=== PATIENT | female | born 1975 | race African-American/Black ===

== ENCOUNTER 2017-12-09 14:54 | Emergency (ER) | payer OTHER ==
[2017-12-09 14:57] VITALS: TEMP 98.4; BMI 65.9
--- NOTE | 2017-12-09 15:14 | PDOC ---
History of Present Illness - General Chief Complaint: Pain Stated Complaint: FACIAL PAIN Time Seen by Provider: 12/09/17 15:04 History Source: Patient Exam Limitations: No Limitations - History of Present Illness Initial Comments: CHIEF COMPLAINT: 42 y/o afebrile female c/o right sided jaw pain x 4 days. HISTORY OF PRESENT ILLNESS: The patient had a tooth pulling in the back of her mouth on the right side 4 days ago. She states since then the right side of her face and jaw have gotten progressively more painful and swollen. She went back to the dentist twice who feels her jaw bone may have accidentally been broken during the process of the tooth extraction. The patient is taking tylenol with codeine and clindamycin. She denies fevers. Vital signs on arrival are notable for BP of 139/100. REVIEW OF SYSTEMS: GENERAL/CONSTITUTIONAL: No fever/chills. No weakness. No weight change. HEAD, EYES, EARS, NOSE AND THROAT: +right sided jaw pain and swelling. + difficulty opening mouth. No change in vision. No ear pain or discharge. No sore throat. MUSCULOSKELETAL: No joint or muscle swelling or pain. No neck or back pain. SKIN: No rash or easy bruising. NEUROLOGIC: No headache, vertigo, loss of consciousness, or loss of sensation. PHYSICAL EXAM: GENERAL: The patient is awake, alert, and fully oriented, in no acute distress. HEAD: Normal with no signs of trauma. Obvious swelling to right side of face over right mandible and maxilla. No warmth or streaking. No mastoid TTP b/l. ENT: 2 finger trismus. TTP of right side of face over maxilla and mandible without crepitus or obvious deformities. TTP of right TMJ. Pupils equal, round and reactive to light, extraocular movements intact, sclera anicteric, conjunctiva clear. No pre or post auricular lymphadenopathy. No cervical lymphadenopathy. No obvious gingivitis or signs of infection inside of the mouth. EXTREMITIES: Normal range of motion, no edema. NEUROLOGICAL: Normal speech, normal gait. CN II-XII grossly intact. SKIN: Warm, dry, normal turgor, no rashes or lesions noted. Past History - Past Medical History Allergies/Adverse Reactions: Allergies Allergy/AdvReac Type Severity Reaction Status Date / Time acetaminophen Allergy Severe Nausea Verified 12/09/17 16:29 codeine Allergy Severe Vomiting Verified 12/09/17 16:29 codeine phosphate Allergy Severe Verified 12/09/17 16:29 [From Tylenol-Codeine #3] Home Medications: Ambulatory Orders Amlodipine Besylate 10 mg PO DAILY 02/24/15 Lisinopril [Prinivil -] 10 mg PO DAILY 02/24/15 HTN: Yes - Surgical History Abdominal Surgery: Yes (OVARIAN CYST REMOVED) - Immunization History Immunization Up to Date: Yes - Suicide/Smoking/Psychosocial Hx Smoking Status: No Smoking History: Never smoked Number of Cigarettes Smoked Daily: 0 Hx Alcohol Use: Yes (occasion) Drug/Substance Use Hx: No *Physical Exam - Vital Signs Last Vital Signs Temp Pulse Resp BP Pulse Ox 98.4 F 86 16 139/100 100 12/09/17 14:55 12/09/17 14:55 12/09/17 14:55 12/09/17 14:55 12/09/17 14:55 Medical Decision Making - Medical Decision Making A/P: 42 y/o female with right sided jaw pain and swelling since having molar extracted 4 days ago. TMJ vs jaw bone fracture. Plan is as follows: 1. hcg 2. xray facial bones hcg - negative IM toradol ordered Facial bones xray IMPRESSION: Subtle hazy increased opacity within the right maxillary sinus with some subtle irregularity involving the right maxillary sinus medial wall, which could be projectional, but a subtle fracture cannot be excluded. CT scan is recommended. Will send patient for CT scan of facial bones. CT scan facial bones IMPRESSION: No acute facial bone fracture. Findings consistent with chronic right maxillary sinusitis. Patient given all results. Her trismus and ability to speak have improved since having toradol. Suggested she take ibuprofen along with her other medications and ice her face. Provided her with a referral to oral max/face and a copy of her CT scan results. Instructed her to return to the ER with any worsening or concerning symptoms. The patient verbalizes understanding of all instructions, has no further questions and is awaiting discharge. *DC/Admit/Observation/Transfer Diagnosis at time of Disposition: Facial swelling, TMJ (temporomandibular joint syndrome) - Discharge Dispostion Disposition: HOME Condition at time of disposition: Improved - Referrals Referrals: Ac Navarro [Primary Care Provider] - Rich Lerner [Non Staff, Medical] - Call tomorrow (Call Monday) - Patient Instructions Printed Discharge Instructions: DI for Temporomandibular Disorder Additional Instructions: Discharge Instructions: -The Cat Scan of your facial bones was negative for broken bones. -Please continue taking antibiotics and pain medication your dentist prescribed for you -Take 600mg of over the counter Ibuprofen every 6 hours with food to help with swelling -Apply ice to the affected area of your face -Call the referred specialist on Monday to make a follow up appointment -Return to the ER with any worsening or concerning symptoms - Post Discharge Activity
[2017-12-09] MEDS ORDERED: KETOROLAC TROMETHAMINE 60 MG/2 ML VIAL ONE (16:59)
[2017-12-09] MEDS ORDERED: KETOROLAC TROMETHAMINE 60 MG/2 ML VIAL IM ONE (16:59)
[2017-12-09 17:35] VITALS: BP 148/93; PULSE 77
== END 2017-12-09 19:14 | disposition home or self-care (01) ==
LOC: JERFT 14:54
PROC: 3E0233Z Introduction of Anti-inflammatory into Muscle, Percutaneous Approach (ICD-10-PCS; principal; 2017-12-09)
DX: M26.69 Other specified disorders of temporomandibular joint (principal)
CPT/HCPCS: 70150-TC-FY; 70486-TC; 84703; 96372; 99281-25

== ENCOUNTER 2019-02-05 17:09 | Emergency (ER) | payer OTHER ==
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
[2019-02-05 17:17] VITALS: TEMP 98.2; BMI 25.7
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
[2019-02-05 18:32] LABS: BASO % 0.5 % (0-2.0); EOS % 1.7 % (0-4.5); HEMATOCRIT 37.1 % (32.4-45.2); LYMPH % 44.7 % (8-40); MCH 26.9 pg (25.7-33.7); MCHC 32.4 g/dl (32.0-36.0); MEAN PLT VOLUME 7.4 fl (7.5-11.1); MONO % 7.2 % (3.8-10.2); NEUT % 45.9 % (42.8-82.8); PLATELET COUNT 363 K/MM3 (134-434); RBC 4.47 M/mm3 (3.60-5.2); RDW 14.1 % (11.6-15.6); WHITE BLOOD COUNT 5.5 K/mm3 (4.0-10.0)
[2019-02-05 18:40] LABS: INR 0.99 (0.83-1.09); PROTHROMBIN TIME (PATIENT) 11.7 SEC (9.7-13.0)
[2019-02-05 19:10] LABS: ALBUMIN 4.2 g/dl (3.4-5.0); ALK PHOS 68 U/L (45-117); ANION GAP 5 MMOL/L (8-16); BILIRUBIN,TOTAL 0.2 mg/dL (0.2-1); BLOOD UREA NITROGEN 9.4 mg/dL (7-18); CALCIUM 8.8 mg/dL (8.5-10.1); CHLORIDE 104 mmol/L (98-107); CO2 30 mmol/L (21-32); CREATININE 0.7 mg/dL (0.55-1.3); GLUCOSE,RANDOM 89 mg/dL (74-106); POTASSIUM 3.1 mmol/L (3.5-5.1); SGOT/AST 9 U/L (15-37); SGPT/ALT 13 U/L (13-61); SODIUM 139 mmol/L (136-145); TOT PROT 7.9 g/dl (6.4-8.2)
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
[2019-02-05] MEDS ORDERED: KETOROLAC TROMETHAMINE 30 MG/1 ML VIAL IM ONE (20:00)
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
[2019-02-05] MEDS ORDERED: KETOROLAC TROMETHAMINE 30 MG/1 ML VIAL ONE (20:12)
[2019-02-05 20:35] VITALS: BP 135/91; PULSE 72
--- NOTE | 2019-02-06 09:54 | EKG ---
Test Reason : Blood Pressure : / mmHG Vent. Rate : 073 BPM Atrial Rate : 073 BPM P-R Int : 270 ms QRS Dur : 086 ms QT Int : 392 ms P-R-T Axes : 071 063 064 degrees QTc Int : 431 ms SINUS RHYTHM WITH 1ST DEGREE A-V BLOCK OTHERWISE NORMAL ECG WHEN COMPARED WITH ECG OF 21-JAN-2008 01:50, [place] INTERVAL HAS INCREASED Confirmed by YAO PERALES, BLAISE ([id number]) on 02/06/2019 9:53:40 AM Referred By: Confirmed By:BLAISE SAMAYOA MD
== END 2019-02-05 21:31 | disposition home or self-care (01) ==
LOC: JERFT 17:09 → JER 17:09
PROC: 3E0233Z Introduction of Anti-inflammatory into Muscle, Percutaneous Approach (ICD-10-PCS; principal; 2019-02-05)
DX: S29.8XXA Other specified injuries of thorax, initial encounter (principal); V78.6XXA Passenger on bus injured in noncollision transport accident in traffic accident, initial encounter; Y92.414 Local residential or business street as the place of occurrence of the external cause; Y93.89 Activity, other specified; Y99.8 Other external cause status; I10 Essential (primary) hypertension
CPT/HCPCS: 36415; 71046-TC-FY; 80053; 82550; 84484; 84703; 85025; 85610; 93005; 93010; 99283-25

== ENCOUNTER 2019-02-11 17:32 | Emergency (ER) | payer OTHER ==
[2019-02-11] MEDS ORDERED: KETOROLAC TROMETHAMINE 30 MG/1 ML VIAL IM ONE (18:02)
[2019-02-11] MEDS ORDERED: KETOROLAC TROMETHAMINE 30 MG/1 ML VIAL ONE (18:15)
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
[2019-02-11 18:29] VITALS: PULSE 78; TEMP 98.2; BMI 25.7
[2019-02-11 18:35] VITALS: BP 139/97
== END 2019-02-11 18:38 | disposition home or self-care (01) ==
LOC: FER 17:32
PROC: 3E0233Z Introduction of Anti-inflammatory into Muscle, Percutaneous Approach (ICD-10-PCS; principal; 2019-02-11)
DX: R25.2 Cramp and spasm (principal); S29.8XXA Other specified injuries of thorax, initial encounter; V43.62XA Car passenger injured in collision with other type car in traffic accident, initial encounter; Y93.89 Activity, other specified; Y92.410 Unspecified street and highway as the place of occurrence of the external cause; Z88.6 Allergy status to analgesic agent; Z88.8 Allergy status to other drugs, medicaments and biological substances; I10 Essential (primary) hypertension
CPT/HCPCS: 99282-25

== ENCOUNTER 2019-02-25 10:53 | Inpatient (IN) | payer OTHER ==
[2019-02-25 08:51] VITALS: BMI 25.7
[2019-02-25] MEDS ORDERED: PROPOFOL 20 ML ONE ×2 (11:15→16:10)
[2019-02-25] MEDS ORDERED: MIDAZOLAM HCL 2 MG/2 ML SINGLE DOSE VIAL ONE ×2 (11:15→14:59)
[2019-02-25] MEDS ORDERED: fentaNYL CITRATE 250 MCG/5 ML VIAL ONE (11:15)
[2019-02-25] MEDS ORDERED: ROCURONIUM BROMIDE 50 MG/5 ML SYRINGE ONE ×2 (11:16→13:33)
[2019-02-25] MEDS ORDERED: BUPIVACAINE HCL/PF 0.5% (5 MG/ML) 30 ML VIAL IJ ONE (11:45)
[2019-02-25] MEDS ORDERED: LIDOCAINE 1%-EPI 1:100,000 30 ML MDV IJ ONE (11:45)
[2019-02-25] MEDS ORDERED: THROMBIN (BOVINE) 20,000 UNIT VIAL TP ONE (11:45)
[2019-02-25] MEDS ORDERED: GENTAMICIN SO4 80 MG/2 ML VIAL ONE (12:19)
--- NOTE | 2019-02-25 12:22 | HP ---
History & Physical Update - History History: No Change - Physical Physical: No Change - Assessment Assessment: No Change - Plan Plan: No Change (Full H&P in the chart from 02/05/19)
[2019-02-25] MEDS ORDERED: ceFAZolin SODIUM 1 GM VIAL IVPB ONE (12:57)
[2019-02-25] MEDS ORDERED: VANCOMYCIN 1,000 MG VIAL (RESTRICTED TO ID ONLY) IVPB ONE (12:59)
[2019-02-25] MEDS ORDERED: hydrALAZINE HCL 20 MG/ML VIAL ONE (13:12)
[2019-02-25] MEDS ORDERED: LIDOCAINE HCL 1%, 10 MG/ML (20ML VIAL) INF ONE (13:30)
[2019-02-25] MEDS ORDERED: NEOSTIGMINE METHYLSULFATE 0.5 MG/ML - 10 ML MDV ONE ×2 (14:38→14:47)
[2019-02-25] MEDS ORDERED: THROMBIN (BOVINE) 5,000 UNIT VIAL TP ONE (14:43)
[2019-02-25] MEDS ORDERED: oxyCODONE HCL 5 MG TABLET PO PRN ×2 (14:53)
[2019-02-25] MEDS ORDERED: ONDANSETRON 4 MG/2 ML VIAL IVPUSH PRN (14:53)
[2019-02-25] MEDS ORDERED: diphenhydrAMINE HCL 25 MG CAPSULE (FP) PO PRN (14:53)
--- NOTE | 2019-02-25 15:05 | OP ---
Operative Note - Note: Operative Date: 02/25/19 Pre-Operative Diagnosis: Cervical spondylosis and lordosis Operation: C5 corpectomy with decompression of spondylosis and reconstruction with PEEK cage and anterior plate Post-Operative Diagnosis: Same as Pre-op Surgeon: Hadley Ashford Stock Feeder: Dominguez Barber Anesthesiologist/TICKET PULLER: George Gallagher Anesthesia: General Estimated Blood Loss (mls): 20 Operative Report Dictated: Yes
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
[2019-02-25] MEDS ORDERED: HYDROmorphone *PCA* 10MG/50ML DISP.SYRIN ONE (17:37)
[2019-02-25] MEDS ORDERED: HYDROmorphone *PCA* 10MG/50ML DISP.SYRIN PCA SCH (17:45)
[2019-02-25] MEDS ORDERED: HYDROmorphone *PCA* 10MG/50ML DISP.SYRIN PCA ONE (17:50)
[2019-02-25] MEDS ORDERED: ceFAZolin SODIUM 1 GM VIAL ONE (18:28)
[2019-02-25] MEDS ORDERED: DEXTROSE 5%-WATER - 50 ML IVPB ONE (18:28)
[2019-02-25] MEDS: CEFAZOLIN 1 GM in DEXTROSE 5%-WATER - 50 ML IVPB SCH (18:35)
[2019-02-25] MEDS: LACTATED RINGERS SOLUTION 1,000 ML/1,000 ML INFUS.BAG IV SCH (18:36)
[2019-02-25] MEDS: HEPARIN NA (PORCINE) 5,000 UNITS/ML 1ML VIAL SQ SCH (21:48)
[2019-02-25] MEDS: DOCUSATE SODIUM 100 MG CAPSULE (FP) PO SCH (21:49)
[2019-02-26] MEDS ORDERED: ceFAZolin SODIUM 1 GM VIAL ONE ×2 (01:07→08:48)
[2019-02-26] MEDS ORDERED: DEXTROSE 5%-WATER - 50 ML IVPB ONE ×2 (01:07→08:48)
[2019-02-26] MEDS: CEFAZOLIN 1 GM in DEXTROSE 5%-WATER - 50 ML IVPB SCH ×2 (01:25→09:24)
[2019-02-26] MEDS: HEPARIN NA (PORCINE) 5,000 UNITS/ML 1ML VIAL SQ SCH ×3 (05:45→22:06)
[2019-02-26] MEDS: DOCUSATE SODIUM 100 MG CAPSULE (FP) PO SCH ×3 (05:45→22:06)
[2019-02-26 08:12] LABS: HEMATOCRIT 36.2 % (32.4-45.2); HEMOGLOBIN 11.9 GM/dL (10.7-15.3); MCH 27.7 pg (25.7-33.7); MCHC 32.9 g/dl (32.0-36.0); MEAN CELL VOLUME 84.1 fl (80-96); MEAN PLT VOLUME 7.2 fl (7.5-11.1); PLATELET COUNT 297 K/MM3 (134-434); RBC 4.31 M/mm3 (3.60-5.2); WHITE BLOOD COUNT 7.3 K/mm3 (4.0-10.0)
--- NOTE | 2019-02-26 08:20 | PN ---
Progress Note (short form) - Note Progress Note: NEUROSURGERY POD #1 s/p C5 corpectomy with decompression of spondylosis and reconstruction with PEEK cage and anterior plate Alert. C/o a lot of posterior neck pain (muscular in nature). Has incisional tenderness. Difficulty sleeping last night due to headache. On DECK MOLDER for pain management but states it's not working. Per RN, patient removed her c-collar multiple times. Hasn't been oob yet. A few episodes of n/v (2/2 general anasthesia) which has resolved. Denies fever , chills, cp, palpiations, sob, handley or UE numbness/tingling. Last Vital Signs Temp Pulse Resp BP Pulse Ox 98.0 F 95 H 20 140/86 100 02/25/19 18:00 02/26/19 07:00 02/26/19 07:00 02/26/19 07:00 02/26/19 07:00 Gen: alert. mild-moderate discomfort Neck; c-collar in place. MAGALY 30mL (serosang). dressing c/d/i. No palpable hematoma. Trach midline. Neuro: GMNVI all extremities. Problem List - Problems (1) Cervical spondylosis Assessment/Plan: Incentive spirometer Wear your c-collar 23/24 hrs/day (may remove while eating) OOB and ambulate Patient states she's still having pain and wishes to stay another day/night for pain management Ofirmev 1gm DECK MOLDER as per Anasthesi Diet as tolerated Cont medical management Will dc her MAGALY later today. dc planning 02/27/19 Neurosurgery to cont following Code(s): M47.812 - SPONDYLOSIS W/O MYELOPATHY OR RADICULOPATHY, CERVICAL REGION (2) Muscle spasms of neck Code(s): M62.838 - OTHER MUSCLE SPASM (3) HTN (hypertension) Code(s): I10 - ESSENTIAL (PRIMARY) HYPERTENSION
[2019-02-26 08:43] LABS: BLOOD UREA NITROGEN 7.1 mg/dL (7-18); CALCIUM 9.6 mg/dL (8.5-10.1); CREATININE 0.7 mg/dL (0.55-1.3); POTASSIUM 3.8 mmol/L (3.5-5.1)
[2019-02-26] MEDS ORDERED: ACETAMINOPHEN 1000 MG/100 ML VIAL (NON FORMULARY) IVPB ONE ×2 (08:45→23:04)
[2019-02-26] MEDS: LISINOPRIL 10 MG TABLET (FP) PO SCH (09:11)
[2019-02-26] MEDS: FOLIC ACID 1 MG TABLET (FP) PO SCH (09:11)
[2019-02-26] MEDS: amLODIPine BESYLATE 5 MG TABLET (FP) PO SCH (09:11)
[2019-02-26] MEDS: FERROUS SO4 325 MG TABLET (FP) PO SCH (09:11)
[2019-02-26] MEDS: ASCORBIC ACID 500 MG TABLET (FP) PO SCH ×2 (09:11→22:06)
--- NOTE | 2019-02-26 10:49 | PROC ---
Procedure Note Procedure: POD#1 ACDF doing well MAGALY drain removed with tip fully intact. drain ostomy clean and dry with no active d/c. Incision c/d/i with surrounding tissue intact with no tracking erythema, edema or evidence of collection or d/c. trachea midline. The patient tolerated the procedure well.
[2019-02-26] MEDS ORDERED: BENZOCAINE/MENTH/CETYLPYRD CL 1 EACH LOZENGE MM PRN (10:50)
--- NOTE | 2019-02-26 11:41 | PN ---
Physical Exam: SUBJECTIVE: Patient seen and examined at the bedside. still with headaches for a few days she states. denies any allergies to acetaminophen. received one dose of ofirmev today w/o issue. states acetaminophen allergy is an error and she has had no adverse affects or allergies from tylenol or acetaminophen. OBJECTIVE: will give fiorecet x 1 dose will remove acetaminophen allergy from [employer] Vital Signs Period Temp Pulse Resp BP Sys/Astudillo Pulse Ox Last 24 Hr 97.6 F-98.0 F 70-99 11-20 112-148/74-99 98-100 GENERAL: The patient is awake, alert, and fully oriented, in no acute distress. HEAD: Normal with no signs of trauma. EYES: PERRL, extraocular movements intact, sclera anicteric, conjunctiva clear. No ptosis. ENT: Ears normal, nares patent, oropharynx clear without exudates, moist mucous membranes. NECK: Trachea midline, full range of motion, supple. ABDOMEN: Soft, nontender, nondistended, normoactive bowel sounds, no guarding, no rebound, no hepatosplenomegaly, no masses. EXTREMITIES: 2+ pulses, warm, well-perfused, no edema. NEUROLOGICAL: Cranial nerves II through XII grossly intact. Normal speech, gait not observed. PSYCH: Normal mood, normal affect. SKIN: Warm, dry, normal turgor, no rashes or lesions noted Laboratory Results - last 24 hr 02/25/19 02/25/19 02/26/19 11:14 11:50 07:45 WBC 7.3 RBC 4.31 Hgb 11.9 Hct 36.2 MCV 84.1 MCH 27.7 MCHC 32.9 RDW 15.0 Plt Count 297 MPV 7.2 L Sodium Potassium Chloride Carbon Dioxide Anion Gap BUN Creatinine Est GFR (CKD-EPI)AfAm Est GFR (CKD-EPI)NonAf Random Glucose Calcium Serum , Qual Negative Blood Type O POSITIVE Antibody Screen Negative 02/26/19 07:45 WBC RBC Hgb Hct MCV MCH MCHC RDW Plt Count MPV Sodium 135 L Potassium 3.8 Chloride 101 Carbon Dioxide 29 Anion Gap 6 L BUN 7.1 Creatinine 0.7 Est GFR (CKD-EPI)AfAm 122.13 Est GFR (CKD-EPI)NonAf 105.37 Random Glucose 97 Calcium 9.6 Serum , Qual Blood Type Antibody Screen Active Medications Generic Name Dose Route Start Last Admin Trade Name Freq PRN Reason Stop Dose Admin Amlodipine Besylate 5 mg 02/26/19 10:00 02/26/19 09:11 Norvasc - PO 5 mg DAILY ERMELINDA Administration Ascorbic Acid 500 mg 02/26/19 10:00 02/26/19 09:11 Vitamin C - PO 500 mg BID ERMELINDA Administration Benzocaine/Menthol 1 each 02/26/19 10:50 Cepacol Lozenge - MM PRN PRN SORE THROAT Diazepam 5 mg 02/26/19 22:00 Valium - PO DAILY [facility] Diphenhydramine HCl 25 mg 02/25/19 14:53 Benadryl - PO Q6H PRN FOR ITCHING Docusate Sodium 100 mg 02/25/19 22:00 02/26/19 05:45 Colace - PO Not Given TID [facility] Fentanyl 50 mcg 02/25/19 16:02 Sublimaze Injection - IVPUSH [id number] PRN PAIN-PACU ORDER X 4 DOSES ONLY Ferrous Sulfate 325 mg 02/26/19 10:00 02/26/19 09:11 Feosol - PO 325 mg DAILY [facility] Administration Folic Acid 1 mg 02/26/19 10:00 02/26/19 09:11 Folic Acid - PO 1 mg DAILY [facility] Administration Heparin Sodium (Porcine) 5,000 unit 02/25/19 22:00 02/26/19 05:45 Heparin - SQ 5,000 unit TID [facility] Administration Hydromorphone HCl 10 mg 02/25/19 17:45 02/25/19 18:35 Hydromorphone 10 Mg/50 Ml-Ns [employer] 03/04/19 17:43 10 mg [employer] ERMELINDA Administration Protocol Lactated Ringer's 1,000 ml in 1,000 mls @ 125 mls/hr 02/25/19 15:00 02/25/19 18:36 Lactated Ringers Solution IV 125 mls/hr ASDIR ERMELINDA Administration Lisinopril 10 mg 02/26/19 10:00 02/26/19 09:11 Prinivil PO 10 mg DAILY ERMELINDA Administration Ondansetron HCl 4 mg 02/25/19 14:53 Zofran Injection IVPUSH Q6H PRN NAUSEA ASSESSMENT/PLAN: Problem List - Problems (1) Cervical spondylosis Assessment/Plan: S/P ACDF 5-6 POD#1 POD #1 s/p C5 corpectomy with decompression of spondylosis and reconstruction with PEEK cage and anterior plate No intraop complications continue to monitor for airway edema O2 @ 2L Surgical care as per Dr Yan gonzalez prn spasms resume lisinipril advance diet as tolerates heparin sq for DVT proph Code(s): M47.812 - SPONDYLOSIS W/O MYELOPATHY OR RADICULOPATHY, CERVICAL REGION (2) HTN (hypertension) Assessment/Plan: on lisinopril and amlodopine Code(s): I10 - ESSENTIAL (PRIMARY) HYPERTENSION Visit type - Emergency Visit Emergency Visit: Yes ED Registration Date: 02/25/19 Care time: The patient presented to the Emergency Department on the above date and was hospitalized for further evaluation of their emergent condition. - New Patient This patient is new to me today: Yes Date on this admission: 02/26/19 - Critical Care Critical Care patient: No - Discharge Referral Referred to [facility] Med P.C.: No
[2019-02-26] MEDS ORDERED: ACETAMINOPHEN/CAFFEINE/BUTALBITAL 1 TAB PO ONE ×2 (11:44→16:45)
[2019-02-26] MEDS ORDERED: oxyCODONE HCL 5 MG TABLET PO PRN (15:09)
[2019-02-26] MEDS ORDERED: HYDROmorphone HCL 2 MG TABLET PO PRN (15:11)
[2019-02-26] MEDS: oxyCODONE HCL 5 MG TABLET PO PRN ×2 (16:47→20:31)
[2019-02-26] MEDS: LACTATED RINGERS SOLUTION 1,000 ML/1,000 ML INFUS.BAG IV SCH ×2 (19:40→22:05)
[2019-02-26] MEDS: diazePAM 5 MG TABLET PO SCH (22:05)
[2019-02-27] MEDS ORDERED: ACETAMINOPHEN 1000 MG/100 ML VIAL (NON FORMULARY) IVPB ONE (03:45)
[2019-02-27] MEDS: HEPARIN NA (PORCINE) 5,000 UNITS/ML 1ML VIAL SQ SCH ×3 (06:00→22:01)
[2019-02-27] MEDS: DOCUSATE SODIUM 100 MG CAPSULE (FP) PO SCH ×4 (06:00→22:49)
--- NOTE | 2019-02-27 08:36 | PN ---
Progress Note (short form) - Note Progress Note: NEUROSURGERY POD #2 Alert. C/o a lot of posterior neck pain (muscular in nature). Has incisional tenderness. Difficulty sleeping last night due to headache. On JACK PRIZER for pain management but states it's not working. Per RN, patient removed her c-collar multiple times. Hasn't been oob yet. A few episodes of n/v (2/2 general anasthesia) which has resolved. Denies fever , chills, cp, palpiations, sob, handley or UE numbness/tingling. Last Vital Signs Temp Pulse Resp BP Pulse Ox 98.7 F 103 H 20 123/97 93 L 02/27/ 06:56 02/27/19 06:56 02/27/ 06:56 02/27/19 06:56 02/26/ 11:00 Gen: alert. mild-moderate discomfort Neck; c-collar in place. MAGALY 30mL (serosang). dressing c/d/i. No palpable hematoma. Trach midline. Neuro: GMNVI all extremities. Problem List - Problems (1) Cervical spondylosis Assessment/Plan: POD #2 s/p C5 corpectomy with decompression of spondylosis and reconstruction with PEEK cage and anterior plate Incentive spirometer Wear your c-collar 23/24 hrs/day (may remove while eating) OOB and ambulate Diet as tolerated Per Dr. Ashford, patient cleared for DC Code(s): M47.812 - SPONDYLOSIS W/O MYELOPATHY OR RADICULOPATHY, CERVICAL REGION (2) Muscle spasms of neck Code(s): M62.838 - OTHER MUSCLE SPASM (3) HTN (hypertension) Code(s): I10 - ESSENTIAL (PRIMARY) HYPERTENSION
[2019-02-27] MEDS: diazePAM 5 MG TABLET PO SCH (09:27)
[2019-02-27] MEDS: amLODIPine BESYLATE 5 MG TABLET (FP) PO SCH (09:27)
[2019-02-27] MEDS: FERROUS SO4 325 MG TABLET (FP) PO SCH (09:27)
[2019-02-27] MEDS: FOLIC ACID 1 MG TABLET (FP) PO SCH (09:27)
[2019-02-27] MEDS: ASCORBIC ACID 500 MG TABLET (FP) PO SCH ×2 (09:28→22:49)
[2019-02-27] MEDS: LISINOPRIL 10 MG TABLET (FP) PO SCH (09:28)
[2019-02-27 12:56] LABS: BASO % 0.5 % (0-2.0); EOS % 0.1 % (0-4.5); HEMOGLOBIN 12.7 GM/dL (10.7-15.3); LYMPH % 12.7 % (8-40); MCH 27.7 pg (25.7-33.7); MCHC 33.4 g/dl (32.0-36.0); MEAN CELL VOLUME 82.9 fl (80-96); MEAN PLT VOLUME 7.3 fl (7.5-11.1); MONO % 9.5 % (3.8-10.2); NEUT % 77.2 % (42.8-82.8); PLATELET COUNT 295 K/MM3 (134-434); RBC 4.58 M/mm3 (3.60-5.2); RDW 15.2 % (11.6-15.6); WHITE BLOOD COUNT 10.2 K/mm3 (4.0-10.0)
[2019-02-27] MEDS ORDERED: amLODIPine BESYLATE 5 MG TABLET (FP) PO ONE (13:05)
[2019-02-27 13:22] LABS: ALBUMIN 4.4 g/dl (3.4-5.0); BILIRUBIN,TOTAL 0.7 mg/dL (0.2-1); BLOOD UREA NITROGEN 7.6 mg/dL (7-18); CALCIUM 9.9 mg/dL (8.5-10.1); CREATININE 0.7 mg/dL (0.55-1.3); POTASSIUM 3.6 mmol/L (3.5-5.1); TOT PROT 8.6 g/dl (6.4-8.2)
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
[2019-02-27] MEDS: oxyCODONE HCL 5 MG TABLET PO PRN ×2 (15:15→19:48)
[2019-02-27] MEDS ORDERED: amLODIPine BESYLATE 5 MG TABLET (FP) PO SCH (17:58)
[2019-02-28] MEDS: HEPARIN NA (PORCINE) 5,000 UNITS/ML 1ML VIAL SQ SCH ×2 (05:52→13:34)
[2019-02-28] MEDS: DOCUSATE SODIUM 100 MG CAPSULE (FP) PO SCH ×2 (05:52→13:34)
[2019-02-28] MEDS: oxyCODONE HCL 5 MG TABLET PO PRN ×2 (08:11→12:56)
--- NOTE | 2019-02-28 08:35 | PN ---
Progress Note (short form) - Note Progress Note: POD 3, s/p C5 corpectomy with decompression of spondylosis and reconstruction with PEEK cage and anterior plate Pt seen and examined. Reports she is feeling much better. Has some posterior neck pain. Has been oob without issue. Tolerating PO, has some throat swelling which has improved. Voiding. Denies cp/sob, n/v/d. Vital Signs Temp 98.9 F 02/28/19 06:43 Pulse 110 H 02/28/19 06:43 Resp 20 02/28/19 06:43 BP 136/92 02/28/19 06:43 Pulse Ox 93 L 02/26/19 11:00 Intake & Output 02/27/19 02/27/19 02/28/19 11:59 23:59 11:59 Intake Total 1100 Balance 1100 Intake: IV 1000 LACTATED RINGERS SOLUTION 1000 1,000 ml In 1,000 ml @ 125 mls/hr IV ASDIR ERMELINDA Rx#:[id number] IVPB 100 Other: Voiding Method Toilet Toilet # Unmeasured Voids Void 1 1 Bowel Movement Yes CBC, BMP 02/27/19 12:37 02/27/19 12:37 Gen: awake, alert, nad Neck: collar in place, dressing c/d/i, no surrounding edema or erythema noted Resp: unlabored on RA Neuro: Wire Preparation Worker strength intact b/l, 5/5 biceps/triceps, 5/5 dorsi/plantarflexion. SILT b/l UE/LE A/P: 43 y/o F w/ PMhx htn, now POD 3, s/p C5 corpectomy with decompression of spondylosis and reconstruction with PEEK cage and anterior plate afebrile, vss -Cleared for d/c from NS standpoint -All questions answered, rx re-sent to [facility] per pt request, RX sent yesterday to [facility] canceled via phone d/w Dr De Paz
[2019-02-28] MEDS: FERROUS SO4 325 MG TABLET (FP) PO SCH (09:22)
[2019-02-28] MEDS: ASCORBIC ACID 500 MG TABLET (FP) PO SCH (09:25)
[2019-02-28] MEDS: diazePAM 5 MG TABLET PO SCH (09:26)
[2019-02-28] MEDS: FOLIC ACID 1 MG TABLET (FP) PO SCH (09:26)
[2019-02-28] MEDS: LISINOPRIL 10 MG TABLET (FP) PO SCH (09:26)
[2019-02-28] MEDS ORDERED: PT OWN MED DRAWER 7, Y5N ONE (09:33)
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
[2019-02-28 14:28] VITALS: BP 145/99; PULSE 109; TEMP 98.4
--- NOTE | 2019-03-01 14:59 | SURG ---
Surgery Patient Accounts Specialist Note Patient Accounts Specialist: Dominguez Barber PA-C Date of Service: 02/25/19 Diagnosis: Cervical spondylotic myelopathy with kyphosis Procedure: 1. Interbody Cage (Corpectomy) 2. C4 Caudal Hemicorpectomy with resection of osteophytes and posterior longitudinal ligament 3. C5 Caudal Hemicorpectomy with resection of osteophytes and posterior longitudinal ligament 4. C6 Rostral Hemicorpectomy with resection of osteophytes and posterior longitudinal ligament 5. Anterior instrumentation C4-C6 (technically challenging) 6. Fluoroscopy 7. Microdissection 8. C4/5 Arthrodesis 9. C5/6 Arthrodesis 10. Local autograft 11. Deformity Correction (synagogue of lordosis) I was present for the entirety of the operative procedure. For further detail, please refer to operative report. Visit type - Case Type Case Type: Scheduled - Emergency Emergency Visit: No - New patient This patient is new to me today: Yes Date on this admission: 03/01/19 - Critical Care Critical Care patient: No
== END 2019-02-28 15:52 | disposition home or self-care (01) | DRG 321 ==
LOC: JSAMEDAYSX 10:53 → J8W 18:16
PROVIDERS: ADMIT Neurological Surgery; ATTEND Nurse Practitioner Family
PROC: 0PB30ZZ Excision of Cervical Vertebra, Open Approach (ICD-10-PCS; 2019-02-25)
PROC: B01BZZZ Fluoroscopy of Spinal Cord (ICD-10-PCS; 2019-02-25)
PROC: 00NW0ZZ Release Cervical Spinal Cord, Open Approach (ICD-10-PCS; 2019-02-25)
PROC: 0RG20A0 Fusion of 2 or more Cervical Vertebral Joints with Interbody Fusion Device, Anterior Approach, Anterior Column, Open Approach (ICD-10-PCS; principal; 2019-02-25 11:00)
DX: M40.202 Unspecified kyphosis, cervical region (principal); M50.00 Cervical disc disorder with myelopathy, unspecified cervical region; M47.812 Spondylosis without myelopathy or radiculopathy, cervical region; I10 Essential (primary) hypertension
CPT/HCPCS: 36415; 72125-TC; 76000-TC-FY; 80048; 80053; 84703; 85025; 85027; 86850; 86900; 86901; 94760; 97116-GP; 97162-GP; J0131; J1644